=== PATIENT | male | born 1945 | race Caucasian/White ===

== ENCOUNTER → 2016-09-15 | Outpatient (CLI) | payer BC ==
[~2016-09-15] MED LIST: ASPI81TA28 PO; ATOR-26 PO; CLOP1TAB5 PO; LEVO50TA PO; LSN5 PO; METF-384 PO; MULT-513 PO; NTRGSL4 SL; REPA1TAB8 PO; TPRSR25 PO
[2016-09-15 09:41] LABS: BASO % 0.3 %; BASO ABS # 0.02 K/uL (0-0.2); COMPLETE YES; EOS % 2.5 %; HEMATOCRIT 45.5 % (42-52); IG% 0.3 %; LYMPH % 21.2 %; MEAN CELL VOLUME 92.7 fL (80-100); MEAN CORPUSCULAR HGB CONC 34.5 g/dl (32-36); MEAN PLATELET VOLUME 11.9 fL (7.4-10.4); MONO % 4.4 %; NEUT % 71.3 %; PLATELET COUNT 175 K/uL (130-400); RED BLOOD COUNT 4.91 M/uL (4.7-6.1); WHITE BLOOD COUNT 7.09 K/uL (4.8-10.8)
[2016-09-15 09:44] LABS: URINE APPEARANCE CLEAR (CLEAR); URINE BILIRUBIN NEG (NEG); URINE COLOR YELLOW; URINE EPITHELIAL CELL AUTO 0-5 /lpf (0-5); URINE NITRITE NEG (NEG); URINE SPECIFIC GRAVITY 1.006 (1.000-1.030); UROBILINOGEN NEG (NEG)
[2016-09-15 09:46] LABS: MANUAL MICROSCOPIC REQUIRED? NO; REVIEW REQ? NO
[2016-09-15 09:59] LABS: ESTIMATED AVERAGE GLUCOSE 140 mg/dl; HA1C FLAG Normal (Normal)
[2016-09-15 10:07] LABS: URINE TOTAL PROTEIN < 5.0 mg/dl (0-11.9)
[2016-09-15 10:22] LABS: RATIO 38.5 mcg/mg (0-30.0)
[2016-09-15 10:27] LABS: ALT/SGPT 24 U/L (12-78); BLOOD UREA NITROGEN 14 mg/dl (7-18); BUN/CREATININE RATIO 14.2 (10-20); CALCIUM 8.1 mg/dl (8.5-10.1); CARBON DIOXIDE 32 mmol/L (21-32); CHLORIDE 102 mmol/L (98-107); CREATININE 0.99 mg/dl (0.60-1.40); GLUCOSE 80 mg/dl (70-99); POTASSIUM 3.7 mmol/L (3.5-5.1); SODIUM 139 mmol/L (136-145)
[2016-09-15 10:37] LABS: ALB/GLOB RATIO 1.5 (0.9-2); ALKALINE PHOSPHATASE 70 U/L (45-117); AST/SGOT 11 U/L (15-37); CHOLESTEROL 93 mg/dl (0-200); CHOLESTEROL/HDL RATIO 2.2; HDL CHOLESTEROL 42 mg/dl; LDL CHOLESTEROL CALCULATED 33 mg/dl; PHOSPHORUS 2.4 mg/dl (2.5-4.9); TRIGLYCERIDES 92 mg/dl (0-150); VERY LOW DENSITY LIPOPROT CALC 18 mg/dl
== END | disposition home or self-care (01) ==
LOC: C.LAB1850 08:09
PROVIDERS: ATTEND Internal Medicine Nephrology
DX: E11.3299 Type 2 diabetes mellitus with mild nonproliferative diabetic retinopathy without macular edema, unspecified eye (principal); E03.9 Hypothyroidism, unspecified; E78.5 Hyperlipidemia, unspecified; N25.81 Secondary hyperparathyroidism of renal origin; N18.3 Chronic kidney disease, stage 3 (moderate); I12.9 Hypertensive chronic kidney disease with stage 1 through stage 4 chronic kidney disease, or unspecified chronic kidney disease

== ENCOUNTER → 2016-12-12 | Outpatient (CLI) | payer BC ==
--- NOTE | 2016-12-12 11:57 | DIAGNOSTIC IMAGING REPORT ---
LEFT SHOULDER MIN 2 VIEWS ROUTINE HISTORY: 71 years-old Male chronic left shoulder pain COMPARISON: Chest radiograph 08/07/2014 TECHNIQUE: 3 views of the left shoulder FINDINGS: Moderate acromioclavicular and glenohumeral osteoarthritis is noted. No acute fracture or dislocation. Imaged left lung hunt are clear. Negative for opaque foreign body. IMPRESSION: 1. No acute fracture or dislocation. 2. Moderate acromioclavicular and glenohumeral osteoarthritis. The above report was generated using voice recognition software. It may contain grammatical, syntax or spelling errors. Electronically signed by: Tiburcio Jimenez M.D. 12/12/2016 11:56 AM Dictated Date/Time: 12/12/2016 11:55 AM
== END | disposition home or self-care (01) ==
LOC: C.RAD1850 11:33
PROVIDERS: ATTEND Internal Medicine Cardiovascular Disease
DX: M25.512 Pain in left shoulder (principal)

== ENCOUNTER → 2017-03-30 | Outpatient (CLI) | payer BC ==
[2017-03-30 12:16] LABS: ESTIMATED AVERAGE GLUCOSE 134 mg/dl; HA1C FLAG Normal (Normal)
[2017-03-30 12:41] LABS: BLOOD UREA NITROGEN 18 mg/dl (7-18); BUN/CREATININE RATIO 16.6 (10-20); CALCIUM 9.3 mg/dl (8.5-10.1); CARBON DIOXIDE 31 mmol/L (21-32); CHLORIDE 101 mmol/L (98-107); CREATININE 1.07 mg/dl (0.60-1.40); GLUCOSE 162 mg/dl (70-99); POTASSIUM 4.5 mmol/L (3.5-5.1); SODIUM 137 mmol/L (136-145)
[2017-03-30 12:42] LABS: PHOSPHORUS 3.1 mg/dl (2.5-4.9)
== END | disposition home or self-care (01) ==
LOC: C.LAB1850 11:20
PROVIDERS: ATTEND Internal Medicine Nephrology
DX: I12.9 Hypertensive chronic kidney disease with stage 1 through stage 4 chronic kidney disease, or unspecified chronic kidney disease (principal); N18.3 Chronic kidney disease, stage 3 (moderate); N25.81 Secondary hyperparathyroidism of renal origin; Z95.828 Presence of other vascular implants and grafts; E11.22 Type 2 diabetes mellitus with diabetic chronic kidney disease; E78.5 Hyperlipidemia, unspecified; I25.10 Atherosclerotic heart disease of native coronary artery without angina pectoris

== ENCOUNTER → 2017-08-01 | Outpatient (CLI) | payer BC ==
[2017-08-01 12:10] LABS: HEMATOCRIT 44.9 % (42-52); HEMOGLOBIN 15.8 g/dL (14.0-18.0); MEAN CELL VOLUME 92.4 fL (80-100); MEAN CORPUSCULAR HEMOGLOBIN 32.5 pg (25-34); MEAN CORPUSCULAR HGB CONC 35.2 g/dl (32-36); MEAN PLATELET VOLUME 11.7 fL (7.4-10.4); PLATELET COUNT 182 K/uL (130-400); RED CELL DISTRIBUTION WIDTH CV 12.4 % (11.5-14.5); RED CELL DISTRIBUTION WIDTH SD 41.9 fL (36.4-46.3); WHITE BLOOD COUNT 6.04 K/uL (4.8-10.8)
[2017-08-01 12:43] LABS: ALBUMIN 4.1 gm/dl (3.4-5.0); BLOOD UREA NITROGEN 15 mg/dl (7-18); CALCIUM 9.5 mg/dl (8.5-10.1); CARBON DIOXIDE 30 mmol/L (21-32); CREATININE 1.15 mg/dl (0.60-1.40); GLUCOSE 145 mg/dl (70-99); PHOSPHORUS 2.5 mg/dl (2.5-4.9); POTASSIUM 4.4 mmol/L (3.5-5.1); SODIUM 136 mmol/L (136-145)
== END | disposition home or self-care (01) ==
LOC: C.LAB1850 11:04
PROVIDERS: ATTEND Internal Medicine Nephrology
DX: I12.9 Hypertensive chronic kidney disease with stage 1 through stage 4 chronic kidney disease, or unspecified chronic kidney disease (principal); N18.3 Chronic kidney disease, stage 3 (moderate); N25.81 Secondary hyperparathyroidism of renal origin; E87.1 Hypo-osmolality and hyponatremia

== ENCOUNTER 2020-09-09 09:34 | Observation (INO) ==
[2020-09-09] MEDS ORDERED: SODIUM CHLORIDE 0.9% 1000ML 500 ML IV ONE (10:13)
--- NOTE | 2020-09-09 10:18 | Emergency Department Note ---
Impression & Plan Hypertensive urgency, HTN (hypertension), Vertigo ED Provider Note NAME: TANIKA FLORES AGE: 75 SEX: M : 1945 ARRIVES VIA: Walk-In INFORMANT: Patient, ED PROVIDER(S): Efren Cifuentes DO CHIEF COMPLAINT: Dizziness HPI: Patient is a 35-year-old male with a past medical history of diabetes, ischemic cardiomyopathy, hypothyroidism, dyslipidemia, CKD and CAD along with hypertension that presents to the ER for dizziness. Symptoms started yesterday while they were driving to [place] to see a friend. Symptoms were coming and going yesterday. Today they have been persistent. He has been unable to walk. He feels like the room is moving. He denies any headache. He feels like his left ear is congested. Denies any weakness or numbness in his arms or legs. No chest pain or shortness of breath. No other exacerbating or remitting factors. He did take all of his blood pressure medications this morning around 830. He vomited while here in the waiting room. ROS: See above HPI for pertinent positives & negatives. A total of 10 systems reviewed and were otherwise negative. PAST MEDICAL HISTORY:See Below PAST SURGICAL HISTORY:See Below FAMILY HISTORY:See Below SOCIAL HISTORY:See Below HOME MEDICATIONS:See Below ALLERGIES:See Below VITALS:See Below PHYSICAL EXAMINATION: GENERAL: Sitting up in bed, alert, well appearing, well nourished, no distress, non-toxic EYE EXAM: normal conjunctiva. PERRL and EOM's intact. OROPHARYNX: no exudate, no erythema, lips, buccal mucosa, and tongue normal and mucous membranes are moist NECK: supple, no nuchal rigidity, no adenopathy, non-tender LUNGS: Clear to auscultation. Normal chest wall mechanics HEART: no murmurs, S1 normal and S2 normal ABDOMEN: abdomen soft, non-tender, normo-active bowel sounds, no masses, no rebound or guarding. BACK: Back is symmetrical on inspection and there is no deformity, no midline tenderness, no CVA tenderness. SKIN: no rashes and no bruising UPPER EXTREMITIES: upper extremities are grossly normal. LOWER EXTREMITIES: No pitting edema. NEURO EXAM: Normal sensorium, cranial nerves II-XII intact, normal speech, no weakness of arms, no weakness of legs. No drift. Finger to nose intact. Gross sensation intact. Unable to walk from wheelchair to stretcher MEDICAL DECISION MAKING: Patient is a 75-year-old male who presents the ER for dizziness. Significantly hypertensive with systolic pressures in the 210s. IV was established blood work was obtained. Labs show no significant leukocytosis or anemia. INR was unremarkable. BMP with LFTs bilirubin was unremarkable. Magnesium slightly low at 1.6. Troponin was negative. Covid was negative. CTs as well as CT angio of the head and neck showed no focal occlusion. Patient was unable to stand up as he was still dizzy. This impaction was left ear was removed by myself. Discussed with hospitalist admitted for further work-up after fluids Antivert and IV hydralazine. Blood pressure did trend down. Triage Nursing notes reviewed. Limited review of prior medical records performed Vital Signs: reviewed and remarkable for HTN Differential diagnosis: Differential Diagnosis includes but is not limited to ischemic Stroke, hemorrhagic stroke, bells palsy, mass, neoplasm, migraine headache, seizure, subarachnoid hemorrhage, TIA, and transient global amnesia. ER treatment provided: See below Diagnostics interpreted by me: ECG: Sinus rhythm rate of 72 Left axis Poor baseline QTC 428 Cardiac Monitoring: An order was placed for continuous cardiac monitoring. The monitor shows a rate of 68 with sinus rhythm. Laboratory studies: As stated above and show below. Imaging studies: CT and CT angios as discussed above Consultation(s): Discussed with Dr. Henley for further evaluation Procedures: Left ear cerumen impaction: Left ear with cerumen impaction. This was removed by myself with a curette. There is a small amount of bleeding as it caused a slight amount of trauma to the canal. TM is still intact. Patient tolerated procedure well. Critical Care: None Past Med/Surg History Surgical History H/O colonoscopy complete Family History Father Diabetes Coronary arteriosclerosis Social History Smoking Status: Never smoker Hx Alcohol Use: No Preferred Language: Belarusian marital status: Current Living Situation: Spouse current occupational status: retired Feels Safe at Home: Yes Allergies Allergies Allergy/AdvReac Type Severity Reaction Status Date / Time No Known Allergies Allergy Unknown Verified 09/09/20 11:01 Home Meds Home Medications Medication Instructions Recorded Confirmed aspirin 81 mg tablet,delayed 81 mg PO DAILY 11/15/18 09/09/20 release multivitamin 1 tab PO DAILY 09/09/20 09/09/20 Previous Rx's Medication Instructions Recorded nitroglycerin 0.4 mg sublingual 0.4 mg SL Q5M PRN #25 tab 11/15/18 tablet lancets 33 gauge #100 ea 03/17/19 atorvastatin 80 mg tablet 80 mg PO DAILY #90 tab 03/01/20 blood sugar diagnostic #100 ea 03/01/20 blood-glucose meter #1 ea 03/01/20 clopidogrel 75 mg tablet 75 mg PO DAILY #90 tab 03/01/20 furosemide 20 mg tablet 20 mg PO DAILY #90 tab 03/01/20 levothyroxine 75 mcg capsule 75 mcg PO DAILY #90 cap 03/01/20 lisinopril 20 mg tablet 20 mg PO BID #180 tab 03/01/20 metformin 1,000 mg tablet 1,000 mg PO BID #180 tab 03/01/20 metoprolol succinate 25 mg 25 mg PO BID #180 tab 03/01/20 tablet,extended release 24 hr repaglinide 1 mg tablet See Rx Instructions PO .COMPLEX 03/01/20 PRN #1440 tab Results & Data (ED) Vital Signs Vital Signs - 24 hr 09/09/20 09:40 09/09/20 12:05 09/09/20 12:19 Temperature 36.0 C L Temperature Source Temporal Artery Scan Pulse Rate 61 68 63 Pulse Rate from SpO2 Sensor Respiratory Rate 18 20 23 Blood Pressure 202/93 H 208/95 H 201/91 H Blood Pressure Mean 129 132 127 Pulse Oximetry 98 97 96 Oxygen Delivery Method Room Air Sepsis Recent Fever Within 48 Hours No Sepsis New/Unexplained Change in Mental Status N/A Sepsis Action Taken by Nursing No Action Required 09/09/20 12:31 09/09/20 12:36 09/09/20 13:01 Temperature Temperature Source Pulse Rate 65 70 65 Pulse Rate from SpO2 Sensor Respiratory Rate 21 21 18 Blood Pressure 172/82 H 186/95 H 167/87 H Blood Pressure Mean 112 125 113 Pulse Oximetry 98 96 96 Oxygen Delivery Method Sepsis Recent Fever Within 48 Hours Sepsis New/Unexplained Change in Mental Status Sepsis Action Taken by Nursing 09/09/20 13:13 09/09/20 13:31 09/09/20 14:01 Temperature Temperature Source Pulse Rate 65 62 Pulse Rate from SpO2 Sensor 64 63 62 Respiratory Rate 18 Blood Pressure 175/82 H 185/83 H 163/80 H Blood Pressure Mean 113 117 107 Pulse Oximetry 97 97 96 Oxygen Delivery Method Sepsis Recent Fever Within 48 Hours Sepsis New/Unexplained Change in Mental Status Sepsis Action Taken by Nursing Laboratory Data Result diagrams: 09/09/20 10:25 09/09/20 10:25 Lab Results 09/09/20 09/09/20 09/09/20 Range/Units 10:25 10:25 10:25 WBC 5.51 (4.8-10.8) K/uL RBC 4.49 L (4.7-6.1) M/uL Hgb 14.8 (14.0-18.0) g/dL Hct 41.8 L (42-52) % MCV 93.1 (80-100) fL MCH 33.0 (25-34) pg MCHC 35.4 (32-36) g/dL RDW Std Deviation 41.8 (36.4-46.3) fL RDW Coeff of Jamshid 12.4 (11.5-14.5) % Plt Count 182 (130-400) K/uL MPV 11.3 H (7.4-10.4) fL Immature Gran % (Auto) 0.2 % Neut % (Auto) 79.4 % Lymph % (Auto) 14.9 % [place] % (Auto) 4.4 % Eos % (Auto) 0.9 % Baso % (Auto) 0.2 % Neut # (Auto) 4.38 (1.4-6.5) K/uL Lymph # (Auto) 0.82 L (1.2-3.4) K/uL [place] # (Auto) 0.24 (0.11-0.59) K/uL Eos # (Auto) 0.05 (0-0.5) K/uL Baso # (Auto) 0.01 (0-0.2) K/uL Immature Gran # (Auto) 0.01 (0.00-0.02) K/uL PT 10.9 (9.0-12.0) Seconds INR 1.1 (0.9-1.1) APTT 22.5 (21.0-31.0) Seconds PTT Ratio 0.9 Sodium 137 (136-145) mmol/L Potassium 4.1 (3.5-5.1) mmol/L Chloride 103 (98-107) mmol/L Carbon Dioxide 28 (21-32) mmol/L Anion Gap 5.0 (3-11) BUN 12 (7-18) mg/dl Creatinine 0.95 (0.6-1.4) mg/dl Est Cr Clr Drug Dosing Not Reportable Est GFR ( Amer) 90.4 ml/min Est GFR (Non-Af Amer) 78.0 ml/min BUN/Creatinine Ratio 13.1 (10-20) Glucose 183 H (70-99) mg/dl Calcium 8.9 (8.5-10.1) mg/dl Magnesium 1.6 L (1.8-2.4) mg/dl Total Bilirubin 0.8 (0.2-1) mg/dl AST 16 (15-37) U/L ALT 19 (12-78) U/L Alkaline Phosphatase 60 (45-117) U/L Troponin I < 0.015 (0-0.045) ng/ml Total Protein 6.6 (6.4-8.2) gm/dl Albumin 3.9 (3.4-5.0) gm/dl Globulin 2.7 (2.5-4.0) gm/dl Albumin/Globulin Ratio 1.4 (0.9-2) COVID-19 Eval Order SARS-CoV-2 (PCR) (Negative) 09/09/20 09/09/20 Range/Units 11:52 11:52 WBC (4.8-10.8) K/uL RBC (4.7-6.1) M/uL Hgb (14.0-18.0) g/dL Hct (42-52) % MCV (80-100) fL MCH (25-34) pg MCHC (32-36) g/dL RDW Std Deviation (36.4-46.3) fL RDW Coeff of Jamshid (11.5-14.5) % Plt Count (130-400) K/uL MPV (7.4-10.4) fL Immature Gran % (Auto) % Neut % (Auto) % Lymph % (Auto) % [place] % (Auto) % Eos % (Auto) % Baso % (Auto) % Neut # (Auto) (1.4-6.5) K/uL Lymph # (Auto) (1.2-3.4) K/uL [place] # (Auto) (0.11-0.59) K/uL Eos # (Auto) (0-0.5) K/uL Baso # (Auto) (0-0.2) K/uL Immature Gran # (Auto) (0.00-0.02) K/uL PT (9.0-12.0) Seconds INR (0.9-1.1) APTT (21.0-31.0) Seconds PTT Ratio Sodium (136-145) mmol/L Potassium (3.5-5.1) mmol/L Chloride (98-107) mmol/L Carbon Dioxide (21-32) mmol/L Anion Gap (3-11) BUN (7-18) mg/dl Creatinine (0.6-1.4) mg/dl Est Cr Clr Drug Dosing Est GFR ( Amer) ml/min Est GFR (Non-Af Amer) ml/min BUN/Creatinine Ratio (10-20) Glucose (70-99) mg/dl Calcium (8.5-10.1) mg/dl Magnesium (1.8-2.4) mg/dl Total Bilirubin (0.2-1) mg/dl AST (15-37) U/L ALT (12-78) U/L Alkaline Phosphatase (45-117) U/L Troponin I (0-0.045) ng/ml Total Protein (6.4-8.2) gm/dl Albumin (3.4-5.0) gm/dl Globulin (2.5-4.0) gm/dl Albumin/Globulin Ratio (0.9-2) COVID-19 Eval Order Covid19 at [facility] SARS-CoV-2 (PCR) NEGATIVE (Negative) Administered Medications Discontinued Medications Hydralazine HCl (Hydralazine Hcl 20 Mg/Ml Vial) 10 mg IV NOW STA Stop: 09/09/20 12:08 Last Admin: 09/09/20 12:21 Dose: 10 mg Documented by: [id number] Sodium Chloride (Nss 1000ml) 500 mls @ 999 mls/hr IV .Q31M ONE Stop: 09/09/20 10:43 Last Infusion: 09/09/20 11:41 Dose: 0 mls/hr Documented by: [id number] Admin: 09/09/20 10:39 Dose: 999 mls/hr Documented by: [id number] Ioversol (Optiray 320 100ml) 91 ml IV ONCE ONE Stop: 09/09/20 11:21 Last Admin: 09/09/20 11:21 Dose: 91 ml Documented by: [id number] Meclizine HCl (Meclizine Hcl 25 Mg Tab) 25 mg PO NOW STA Stop: 09/09/20 11:27 Last Admin: 09/09/20 11:51 Dose: 25 mg Documented by: [id number] Oxymetazoline HCl (Oxymetazoline 0.05% 30 Ml Btl) 3 sprays NA NOW ONE Stop: 09/09/20 13:28 Last Admin: 09/09/20 14:10 Dose: 3 sprays Documented by: [id number] Imaging Data Radiologist's Impression: Chest X-Ray 09/09/20 10:14 XR chest 1V portable HISTORY: Stroke Like Symptoms COMPARISON: Chest 12/06/2013. FINDINGS: The lungs are clear. Cardiac silhouette is normal in size. No pleural effusions. No pneumothorax. IMPRESSION: No acute process. ACT 112: Negative or not required by law. Electronically signed by: Arnaldo Perez M.D. 09/09/2020 10:[address] 09/09/20 10:14 CT head/brain wo con CLINICAL HISTORY: Stroke Like Symptoms COMPARISON STUDY: No previous studies for comparison. TECHNIQUE: Axial CT of the brain is performed from the vertex to the skull base. IV contrast was not administered for this examination. A dose lowering technique was utilized adhering to the principles of ALARA. CT DOSE: 1162.01 mGy.cm FINDINGS: No intra or extra-axial mass lesions are visualized. There is no CT evidence of acute cortical infarction. There is no evidence of midline shift. There is no a cute hemorrhage. No calvarial fractures are visualized. There are patchy white matter hypodensities likely on a small vessel basis. There is no evidence of pathologic ventricular dilatation. There is no evidence of acute sinusitis There are bilateral optic nerve drusens IMPRESSION: No acute intracranial findings ACT 112: Negative or not required by law. Electronically signed by: Dylan Musa M.D. 09/09/2020 11:30 AM Head CTA 09/09/20 10:14 CT ANGIOGRAM OF THE BRAIN; CT ANGIOGRAM OF THE NECK CLINICAL HISTORY: Strokelike symptoms. COMPARISON STUDY: Unenhanced CT of the brain performed concurrently on 09/09/2020. TECHNIQUE: Following the IV administration of 91 of Optiray 320, CT angiogram of the head and neck was performed from the aortic arch to the vertex. Images are reviewed in the axial, sagittal, and coronal planes. 3-D MIPS images are created and assessed. IV contrast was administered without complication. All measurements were calculated based on NASCET criteria. A dose lowering technique was utilized adhering to the principles of ALARA. FINDINGS: Brain parenchyma: There is age-related involutional change noting minimal subcortical and periventricular microangiopathic disease. There is no hemo rrhage, mass effect, or evidence of acute territorial ischemia by CT criteria. There is no evidence of enhancing mass lesion on the angiogram phase images. The ventricles, sulci, and cisterns are prominent secondary to involutional change. Smith-white matter differentiation is preserved. No extra-axial fluid collection is seen. Chronic lacunar infarcts are noted in the thalami. Thoracic aorta: There is atherosclerotic calcification of the thoracic aorta. Visualized portions of the thoracic aorta are normal in caliber. The aortic arch demonstrates standard 3-vessel anatomy. Right carotid arterial system: The right common carotid artery is widely patent, as are the right internal and external carotid arteries. Advanced calcified plaque is seen in the carotid bulb. Left carotid arterial system: The left common carotid artery is widely patent, as are the left internal and externally carotid arteries. Advanced calcified plaque is seen in the carotid bulb. Vertebral arteries: The vertebral arteries are diminutive but patent bilaterally. Subclavian arteries: Widely patent bilaterally. Intracranial vasculature: There is atherosclerotic calcification of the cavernous carotid arteries. There is a large collateral vessels between the ri ght internal carotid artery and the basilar artery, best seen on axial image #59. This largely supplied the posterior circulation. The internal carotid arteries are patent at the skull base, as are the anterior and middle cerebral arteries bilaterally. The vertebrobasilar system is diminutive, with only trace flow seen within the intracranial vertebral arteries. The basilar artery is patent. There is no aneurysm, high-grade stenosis, or focal vessel cut off seen throughout the intracranial circulation. Jugular veins: Patent bilaterally. Dural sinuses: Patent. Lung apices: Partially visualized upper lobe lung parenchyma appears clear. Soft tissues: There are small bilateral peritonsillar cystic foci versus fluid collections. These measure up to 1.1 cm on the right as seen on image #[id number] and up to 1.0 cm on the left as seen on image #281. The pharyngeal soft tissues are otherwise normal as imaged. The oropharyngeal airway appears widely patent. The salivary and thyroid glands are normal in appearance. No cervical lymphadenopathy is seen. Skeletal structures: The skeletal structures are osteopenic. The calvarium appears intact. The cervical spine is maintained noting multilevel spondylosis. No lytic or blastic lesion is seen. Orbits: The bony orbits are intact. Orbital contents are normal as visualized noting bilateral ocular lens implants. Sinuses and mastoids: The paranasal sinuses are clear. The mastoid air cells are well pneumatized. IMPRESSION: 1. There is no evidence of hemorrhage, mass effect, or acute territorial ischemi a by CT criteria noting angiographic phase technique. 2. There is a large collateral vessel between the right internal carotid artery and the basilar artery which supplies the posterior circulation. 3. The [place] vertebral arteries are diminutive throughout, with only trace flow at the skull base. The proximal basilar artery is also diminutive, and these findings are almost certainly chronic/developmental. 4. Otherwise unremarkable CT angiogram of the brain. 5. The carotid arteries are patent bilaterally noting calcified plaque in the carotid bulbs. 6. There are cyst versus fluid collections identified within the peritonsillar soft tissues bilaterally. Small abscesses are not excluded and clinical correlation will be essential. ACT 112: Negative or not required by law. Electronically signed by: Onofre Ayon M.D. 09/09/2020 11:47 AM Neck CTA 09/09/20 10:14 CT ANGIOGRAM OF THE BRAIN; CT ANGIOGRAM OF THE NECK CLINICAL HISTORY: Strokelike symptoms. COMPARISON STUDY: Unenhanced CT of the brain performed concurrently on 09/09/2020. TECHNIQUE: Following the IV administration of 91 of Optiray 320, CT angiogram of the head and neck was performed from the aortic arch to the vertex. Images are reviewed in the axial, sagittal, and coronal planes. 3-D MIPS images are created and assessed. IV contrast was administered without complication. All measurements were calculated based on NASCET criteria. A dose lowering technique was utilized adhering to the principles of ALARA. FINDINGS: Brain parenchyma: There is age-related involutional change noting minimal subcortical and periventricular microangiopathic disease. There is no hemorrhage, mass effect, or evidence of acute territorial ischemia by CT criteria. There is no evidence of enhancing mass lesion on the angiogram phase images. The ventricles, sulci, and cisterns are prominent secondary to involutional change. Smith-white matter differentiation is preserved. No extra- axial fluid collection is seen. Chronic lacunar infarcts are noted in the thalami. Thoracic aorta: There is atherosclerotic calcification of the thoracic aorta. Visualized portions of the thoracic aorta are normal in caliber. The aortic arch demonstrates standard 3-vessel anatomy. Right carotid arterial system: The right common carotid artery is widely patent, as are the right internal and external carotid arteries. Advanced calcified plaque is seen in the carotid bulb. Left carotid arterial system: The left common carotid artery is widely patent, as are the left internal and externally carotid arteries. Advanced calcified plaque is seen in the carotid bulb. Vertebral arteries: The vertebral arteries are diminutive but patent bilaterally. Subclavian arteries: Widely patent bilaterally. Intracranial vasculature: There is atherosclerotic calcification of the cavernous carotid arteries. There is a large collateral vessels between the right internal carotid artery and the basilar artery, best seen on axial image #59. This largely supplied the posterior circulation. The internal carotid arteries are patent at the skull base, as are the anterior and middle cerebral arteries bilaterally. The vertebrobasilar system is diminutive, with only trace flow seen within the intracranial vertebral arteries. The basilar artery is patent. There is no aneurysm, high-grade stenosis, or focal vessel cut off seen throughout the intracranial circulation. Jugular veins: Patent bilaterally. Dural sinuses: Patent. Lung apices: Partially visualized upper lobe lung parenchyma appears clear. Soft tissues: There are small bilateral peritonsillar cystic foci versus fluid collections. These measure up to 1.1 cm on the right as seen on image #2094 and up to 1.0 cm on the left as seen on image #281. The pharyngeal soft tissues are otherwise normal as imaged. The oropharyngeal airway appears widely patent. The salivary and thyroid glands are normal in appearance. No cervical lymphadenopathy is seen. Skeletal structures: The skeletal structures are osteopenic. The calvarium appears intact. The cervical spine is maintained noting multilevel spondylosis. No lytic or blastic lesion is seen. Orbits: The bony orbits are intact. Orbital contents are normal as visualized noting bilateral ocular lens implants. Sinuses and mastoids: The paranasal sinuses are clear. The mastoid air cells are well pneumatized. IMPRESSION: 1. There is no evidence of hemorrhage, mass effect, or acute territorial ischemia by CT criteria noting angiographic phase technique. 2. There is a large collateral vessel between the right internal carotid artery and the basilar artery which supplies the posterior circulation. 3. The [place] vertebral arteries are diminutive throughout, with only trace flow at the skull base. The proximal basilar artery is also diminutive, and these f indings are almost certainly chronic/developmental. 4. Otherwise unremarkable CT angiogram of the brain. 5. The carotid arteries are patent bilaterally noting calcified plaque in the carotid bulbs. 6. There are cyst versus fluid collections identified within the peritonsillar soft tissues bilaterally. Small abscesses are not excluded and clinical correlation will be essential. ACT 112: Negative or not required by law. Electronically signed by: Onofre Ayon M.D. 09/09/2020 11:47 AM Discharge Plan Visit Data Chief Complaint: Ear Pain/Problem Stated Complaint: EAR CLOGGED, DIZZY,OFF BALANCE ED Provider: Efren Cifuentes Discharge Problem: Hypertensive urgency, HTN (hypertension), Vertigo Forms Stand Alone Forms: [facility] Prescriptions Prescriptions: No Action aspirin [Adult Low Dose Aspirin] 81 mg tablet,delayed release (DR/EC) 81 mg PO DAILY RF: 0 nitroglycerin 0.4 mg tablet, sublingual 0.4 mg SL Q5M PRN (Reason: chest pain) Qty: 25 RF: 5 atorvastatin 80 mg tablet 80 mg PO DAILY Qty: 90 RF: 3 (DME) blood sugar diagnostic Strip See Rx Instructions .ROUTE .MEDSUPPLY Qty: 100 RF: 11 clopidogrel 75 mg tablet 75 mg PO DAILY Qty: 90 RF: 3 furosemide 20 mg tablet 20 mg PO DAILY Qty: 90 RF: 3 levothyroxine 75 mcg capsule 75 mcg PO DAILY Qty: 90 RF: 3 lisinopril 20 mg tablet 20 mg PO BID Qty: 180 RF: 3 metformin 1,000 mg tablet 1,000 mg PO BID Qty: 180 RF: 3 metoprolol succinate 25 mg tablet extended release 24 hr 25 mg PO BID Qty: 180 RF: 3 repaglinide 1 mg tablet See Rx Instructions PO .COMPLEX PRN (Reason: TYPE 2 DIABETES MELLITUS) Qty: 1440 RF: 3 (DME) blood-glucose meter Misc See Rx Instructions .ROUTE .MEDSUPPLY Qty: 1 RF: 0 (DME) lancets [OneTouch Delica Lancets] 33 gauge misc See Dose Instructions .ROUTE .MEDSUPPLY Qty: 100 RF: 0 multivitamin Tablet 1 tab PO DAILY RF: 0 Discharge Problem: HTN (hypertension) Qualifiers: Hypertension type: unspecified Qualified Code(s): I10 - Essential (primary) hypertension
--- NOTE | 2020-09-09 10:35 | XRay Report ---
XR chest 1V portable HISTORY: Stroke Like Symptoms COMPARISON: Chest 12/06/2013. FINDINGS: The lungs are clear. Cardiac silhouette is normal in size. No pleural effusions. No pneumot horax. IMPRESSION: No acute process. ACT 112: Negative or not required by law. Electronically signed by: Arnaldo Perez M.D. 09/09/2020 10:34 AM
[2020-09-09 10:38] LABS: Basophils # (auto) 0.01 K/uL (0-0.2); Basophils % (auto) 0.2 %; Eosinophils # (auto) 0.05 K/uL (0-0.5); Eosinophils % (auto) 0.9 %; Hematocrit (blood only) 41.8 % (42-52); Hemoglobin 14.8 g/dL (14.0-18.0); Immature Granulocytes # (auto) 0.01 K/uL (0.00-0.02); Immature Granulocytes % (auto) 0.2 %; Lymphocytes # (auto) 0.82 K/uL (1.2-3.4); Lymphocytes % (auto) 14.9 %; Mean Corpuscular Hgb Conc 35.4 g/dL (32-36); Mean Corpuscular Volume 93.1 fL (80-100); Mean Platelet Volume 11.3 fL (7.4-10.4); Monocytes # (auto) 0.24 K/uL (0.11-0.59); Monocytes % (auto) 4.4 %; Neutrophils # (auto) 4.38 K/uL (1.4-6.5); Neutrophils % (auto) 79.4 %; Platelet Count 182 K/uL (130-400); RDW Coefficient of Variation 12.4 % (11.5-14.5); RDW Standard Deviation 41.8 fL (36.4-46.3); Red Blood Count 4.49 M/uL (4.7-6.1); White Blood Count 5.51 K/uL (4.8-10.8)
[2020-09-09 10:48] LABS: INR 1.1 (0.9-1.1); Partial Thromboplastin Ratio 0.9; Partial Thromboplastin Time 22.5 Seconds (21.0-31.0); Prothrombin Time 10.9 Seconds (9.0-12.0)
[2020-09-09 10:55] LABS: Alanine Aminotransferase 19 U/L (12-78); Albumin Level 3.9 gm/dl (3.4-5.0); Aspartate Aminotransferase 16 U/L (15-37); BUN Creatinine Ratio 13.1 (10-20); Blood Urea Nitrogen 12 mg/dl (7-18); Calcium 8.9 mg/dl (8.5-10.1); Carbon Dioxide 28 mmol/L (21-32); Chloride 103 mmol/L (98-107); Est GFR (African American) 90.4 ml/min; Glucose 183 mg/dl (70-99); Magnesium 1.6 mg/dl (1.8-2.4); Potassium 4.1 mmol/L (3.5-5.1); Sodium 137 mmol/L (136-145)
[2020-09-09 10:59] LABS: Albumin Globulin Ratio 1.4 (0.9-2); Alkaline Phosphatase 60 U/L (45-117); Bilirubin,Total 0.8 mg/dl (0.2-1); Globulin 2.7 gm/dl (2.5-4.0); Total Protein 6.6 gm/dl (6.4-8.2); Troponin I < 0.015 ng/ml (0-0.045)
[2020-09-09] MEDS ORDERED: OPTIRAY 320 100ml IV ONE (11:20)
[2020-09-09] MEDS ORDERED: MECLIZINE HCL 25 MG TAB PO STA (11:26)
--- NOTE | 2020-09-09 11:31 | CT Scan Report ---
CT head/brain wo con CLINICAL HISTORY: Stroke Like Symptoms COMPARISON STUDY: No previous studies for comparison. TECHNIQUE: Axial CT of the brain is performed from the vertex to the skull base. IV contrast was not administered for this examination. A dose lowering technique was utilized adhering to the principles of ALARA. CT DOSE: 1162.01 mGy.cm FINDINGS: No intra or extra-axial mass lesions are visualized. There is no CT evidence of acute cortical infarc tion. There is no evidence of midline shift. There is no acute hemorrhage. No calvarial fractures ar e visualized. There are patchy white matter hypodensities likely on a small vessel basis. There is no evidence of pathologic ventricular dilatation. There is no evidence of acute sinusitis There are bilateral optic nerve drusens IMPRESSION: No acute intracranial findings ACT 112: Negative or not required by law. Electronically signed by: Dylan Musa M.D. 09/09/2020 11:30 AM
--- NOTE | 2020-09-09 11:49 | CT Scan Report ---
CT ANGIOGRAM OF THE BRAIN; CT ANGIOGRAM OF THE NECK CLINICAL HISTORY: Strokelike symptoms. COMPARISON STUDY: Unenhanced CT of the brain performed concurrently on 09/09/2020. TECHNIQUE: Following the IV administration of 91 of Optiray 320, CT angiogram of the head and neck wa s performed from the aortic arch to the vertex. Images are reviewed in the axial, sagittal, and coron al planes. 3-D MIPS images are created and assessed. IV contrast was administered without complicatio n. All measurements were calculated based on NASCET criteria. A dose lowering technique was utilized adhering to the principles of ALARA. FINDINGS: Brain parenchyma: There is age-related involutional change noting minimal subcortical and periventric ular microangiopathic disease. There is no hemorrhage, mass effect, or evidence of acute territorial ischemia by CT criteria. There is no evidence of enhancing mass lesion on the angiogram phase images. The ventricles, sulci, and cisterns are prominent secondary to involutional change. Smith-white matte r differentiation is preserved. No extra-axial fluid collection is seen. Chronic lacunar infarcts are noted in the thalami. Thoracic aorta: There is atherosclerotic calcification of the thoracic aorta. Visualized portions of the thoracic aorta are normal in caliber. The aortic arch demonstrates standard 3-vessel anatomy. Right carotid arterial system: The right common carotid artery is widely patent, as are the right int ernal and external carotid arteries. Advanced calcified plaque is seen in the carotid bulb. Left carotid arterial system: The left common carotid artery is widely patent, as are the left record label intern al and externally carotid arteries. Advanced calcified plaque is seen in the carotid bulb. Vertebral arteries: The vertebral arteries are diminutive but patent bilaterally. Subclavian arteries: Widely patent bilaterally. Intracranial vasculature: There is atherosclerotic calcification of the cavernous carotid arteries. T here is a large collateral vessels between the right internal carotid artery and the basilar artery, best seen on axial image #59. This largely supplied the posterior circulation. The internal carotid a rteries are patent at the skull base, as are the anterior and middle cerebral arteries bilaterally. The vertebrobasilar system is diminutive, with only trace flow seen within the intracranial vertebral arteries. The basilar artery is patent. There is no aneurysm, high-grade stenosis, or focal vessel c ut off seen throughout the intracranial circulation. Jugular veins: Patent bilaterally. Dural sinuses: Patent. Lung apices: Partially visualized upper lobe lung parenchyma appears clear. Soft tissues: There are small bilateral peritonsillar cystic foci versus fluid collections. These madi sure up to 1.1 cm on the right as seen on image #[id number] and up to 1.0 cm on the left as seen on image # 281. The pharyngeal soft tissues are otherwise normal as imaged. The oropharyngeal airway appears wid luz patent. The salivary and thyroid glands are normal in appearance. No cervical lymphadenopathy is seen. Skeletal structures: The skeletal structures are osteopenic. The calvarium appears intact. The cervic al spine is maintained noting multilevel spondylosis. No lytic or blastic lesion is seen. Orbits: The bony orbits are intact. Orbital contents are normal as visualized noting bilateral ocular lens implants. Sinuses and mastoids: The paranasal sinuses are clear. The mastoid air cells are well pneumatized. IMPRESSION: 1. There is no evidence of hemorrhage, mass effect, or acute territorial ischemia by CT criteria noti ng angiographic phase technique. 2. There is a large collateral vessel between the right internal carotid artery and the basilar arter y which supplies the posterior circulation. 3. The [place] vertebral arteries are diminutive throughout, with only trace flow at the skull base. T he proximal basilar artery is also diminutive, and these findings are almost certainly chronic/develo pmental. 4. Otherwise unremarkable CT angiogram of the brain. 5. The carotid arteries are patent bilaterally noting calcified plaque in the carotid bulbs. 6. There are cyst versus fluid collections identified within the peritonsillar soft tissues bilateral ly. Small abscesses are not excluded and clinical correlation will be essential. ACT 112: Negative or not required by law. Electronically signed by: Onofre Ayon M.D. 09/09/2020 11:47 AM
[2020-09-09] MEDS ORDERED: hydrALAZINE HCL 20 MG/ML VIAL IV STA (12:07)
[2020-09-09] MEDS ORDERED: OXYMETAZOLINE 0.05% 30 ML BTL ONE (13:27)
--- NOTE | 2020-09-09 14:59 | History & Physical Report ---
Date of Service September 09, 2020 Assessment & Plan (1) Vertigo: Mr. Davenport is a 75 year old male with a history of Hypertension, Hypercholesterolemia, Mild LVH, Diastolic Dysfunction, Mild to Moderate Mitral Regurgitation, Ischemic Cardiomyopathy (LVEF up to 50%, Jan 2014, Feb 2017, Feb 2019), CAD s/p Anteroapical MS s/p proximal LAD stents), Type 2 Diabetes Mellitus, Peripheral and Autonomic Neuropathy, and Stage 3 CKD who presents to the ER today complaining of Vertigo, Left Ear Congestion, and Vomiting. His Vertigo is so bad that he cannot walk without risking a fall. These symptoms started yesterday while they were driving to [place] to see a friend, and as they were driving up over [place] his left ear felt congested, he had decreased hearing in his left ear, and then experienced vertigo. His vertigo and ear congestion seems to be sometimes mild and other times it's more severe -- he describes 5 severe episodes of vertigo since yesterday and symptoms have been more persistent today. He has been unable to walk. He feels like the room is moving. He denies any headache or tinnitus. He denies any focal weakness, tingling, or numbness of his arms or legs. He denies any visual disturbance, blind black spots, loss of visual hunt. He denies any slurred speech. No chest pain, angina, or shortness of breath. These symptoms are likely related to eustachian tube dysfunction. Consider BPPV and Meniere's Disease in the differential. No evidence of a CVA on imaging. -- Admit to Med-Surg. -- IV Methylprednisolone 60 mg x 1 dose ordered. -- Nasacort AQ 2 sprays in each nostril daily. -- Meclizine as needed. -- PT Evaluation and treatment of vertigo. (2) HTN (hypertension): -- Initial BP in the ER was 202/93 and increased to 208/95. -- BP has subsequently decreased to 163/80. -- Patient states that his BP's at home have been ranging in the 120 to 130's mmHg. -- Continue Lisinopril 20 mg b.i.d.. -- Continue Metoprolol Succinate ER 25 mg b.i.d.. -- Continue Lasix 20 mg daily. -- Add Hydralazine 20mg IV q 4 hours as needed for SBP = or > 160 mmHg. (3) Type 2 diabetes mellitus: -- Hold Metformin. -- Monitor daily labs. (4) CAD (coronary artery disease): -- Continue Lisinopril 20 mg b.i.d.. -- Continue Metoprolol Succinate ER 25 mg b.i.d.. -- Continue Lasix 20 mg daily. -- Continue Aspirin 81 mg daily. -- Continue Plavix 75 mg daily. -- Continue Atorvastatin 80 mg daily. (5) Ischemic cardiomyopathy: -- LVEF 50%. -- Well compensated. -- Continue medications as outlined above. (6) CKD (chronic kidney disease), stage III: -- Monitor daily labs. -- Continue medications as outlined above. History of Present Illness Chief Complaint: -- Vertigo. -- Eustachian Tube Dysfunction. -- Uncontrolled Hypertension. Primary Care Provider: Flex Figueroa MD Mr. Davenport is a 75 year old male with a history of Hypertension, Hypercholesterolemia, Mild LVH, Diastolic Dysfunction, Mild to Moderate Mitral Regurgitation, Ischemic Cardiomyopathy (LVEF up to 50%, Jan 2014, Feb 2017, Feb 2019), CAD s/p Anteroapical MS s/p proximal LAD stents), Type 2 Diabetes Mellitus, Peripheral and Autonomic Neuropathy, and Stage 3 CKD who presents to the ER today complaining of Vertigo, Left Ear Congestion, and Vomiting. His Vertigo is so bad that he cannot walk without risking a fall. These symptoms started yesterday while they were driving to [place] to see a friend, and as they were driving up over [facility] his left ear felt congested, he had decreased hearing in his left ear, and then experienced vertigo. His vertigo and ear congestion seems to be sometimes mild and other times it's more severe -- he describes 5 severe episodes of vertigo since yesterday and symptoms have been more persistent today. He has been unable to walk. He feels like the room is moving. He denies any headache or tinnitus. He denies any focal weakness, tingling, or numbness of his arms or legs. He denies any visual disturbance, blind black spots, loss of visual hunt. He denies any slurred speech. No chest pain, angina, or shortness of breath. His diet and oral intake have been stable. BP's at home have been ranging in the 120 to 130's mmHg at home, although his SBP in the ER was up to 200 mmHg. In the ER, he was noted to have cerumen in the left ear canal. This was removed and his symptoms persisted. Allergies Allergy/AdvReac Type Severity Reaction Status Date / Time No Known Allergies Allergy Unknown Verified 09/09/20 11:01 Home Medications Medication Instructions Recorded Confirmed Type aspirin 81 mg tablet,delayed 81 mg PO DAILY 11/15/18 09/09/20 History release nitroglycerin 0.4 mg sublingual 0.4 mg SL Q5M PRN #25 tab 11/15/18 09/09/20 Rx tablet lancets 33 gauge #100 ea 03/17/19 09/09/20 Rx atorvastatin 80 mg tablet 80 mg PO DAILY #90 tab 03/01/20 09/09/20 Rx blood sugar diagnostic #100 ea 03/01/20 09/09/20 Rx blood-glucose meter #1 ea 03/01/20 09/09/20 Rx clopidogrel 75 mg tablet 75 mg PO DAILY #90 tab 03/01/20 09/09/20 Rx furosemide 20 mg tablet 20 mg PO DAILY #90 tab 03/01/20 09/09/20 Rx levothyroxine 75 mcg capsule 75 mcg PO DAILY #90 cap 03/01/20 09/09/20 Rx lisinopril 20 mg tablet 20 mg PO BID #180 tab 03/01/20 09/09/20 Rx metformin 1,000 mg tablet 1,000 mg PO BID #180 tab 03/01/20 09/09/20 Rx metoprolol succinate 25 mg 25 mg PO BID #180 tab 03/01/20 09/09/20 Rx tablet,extended release 24 hr repaglinide 1 mg tablet See Rx Instructions PO .COMPLEX 03/01/20 09/09/20 Rx PRN #1440 tab multivitamin 1 tab PO DAILY 09/09/20 09/09/20 History Past Med/Surg History Surgical History H/O colonoscopy complete Family History Father Diabetes Coronary arteriosclerosis Social History Smoking Status: Never smoker Hx Alcohol Use: No Preferred Language: Korean marital status: Current Living Situation: Spouse current occupational status: retired Feels Safe at Home: Yes Review of Systems Review of Systems: All systems reviewed & are unremarkable except as noted in Subjective Physical Exam Physical Exam: GENERAL: Patient in no acute distress. HEENT: Head is atraumatic, normocephalic. EOM's intact. Facies symmetric. No perioral cyanosis. Left ear canal clear, mild retraction of left tympanic membrane. No fluid lines noted. NECK: No JVD. JVP is at the level of the clavicle sitting upright. Carotid upstrokes are + 2 bilaterally. No bruits are noted. CHEST/LUNGS: Clear to auscultation throughout all lung hunt. No wheezes, rales, or crackles. CVS: S1 and S2 are regular with a grade 2/6 apical systolic murmur. No diastolic murmurs or rubs. PMI is nondisplaced. No lifts, heaves, or thrills. No abdominal aortic or renal bruits. ABDOMINAL EXAM: Bowel sounds are present. No masses, organomegaly, or tenderness. EXTREMITIES: No clubbing or cyanosis. No edema. Intact posterior tibial and radial pulses bilaterally. NEUROLOGIC EXAM: Patient is awake, alert, and oriented. Pleasant and cooperative. Answers questions appropriately. Speech is clear. Normal movement in all 4 extremities. Gait pattern was not assessed. Some thenar and interosseus muscle wasting noted in bilateral hands. Worm Sorter shows a normal sinus rhythm. Results & Data Results & Data ([facility]) Vital Signs (Past 12 Hours) Vital Signs Temp Pulse Resp BP Pulse Ox 09/09/20 14:01 62 163/80 H 96 09/09/20 13:31 65 185/83 H 97 09/09/20 13:13 18 175/82 H 97 09/09/20 13:01 65 18 167/87 H 96 09/09/20 12:36 70 21 186/95 H 96 09/09/20 12:31 65 21 172/82 H 98 09/09/20 12:19 63 23 201/91 H 96 09/09/20 12:05 68 20 208/95 H 97 09/09/20 09:40 36.0 C L 61 18 202/93 H 98 Laboratory Results Laboratory Results - last 24 hr 05/27/21 05/27/21 05/27/21 10:25 10:25 10:25 WBC 5.51 RBC 4.49 L Hgb 14.8 Hct 41.8 L MCV 93.1 MCH 33.0 MCHC 35.4 RDW Std Deviation 41.8 RDW Coeff of Jamshid 12.4 Plt Count 182 MPV 11.3 H Immature Gran % (Auto) 0.2 Neut % (Auto) 79.4 Lymph % (Auto) 14.9 [place] % (Auto) 4.4 Eos % (Auto) 0.9 Baso % (Auto) 0.2 Neut # (Auto) 4.38 Lymph # (Auto) 0.82 L [place] # (Auto) 0.24 Eos # (Auto) 0.05 Baso # (Auto) 0.01 Immature Gran # (Auto) 0.01 PT 10.9 INR 1.1 APTT 22.5 PTT Ratio 0.9 Sodium 137 Potassium 4.1 Chloride 103 Carbon Dioxide 28 Anion Gap 5.0 BUN 12 Creatinine 0.95 Est Cr Clr Drug Dosing Not Reportable Est GFR ( Amer) 90.4 Est GFR (Non-Af Amer) 78.0 BUN/Creatinine Ratio 13.1 Glucose 183 H Calcium 8.9 Magnesium 1.6 L Total Bilirubin 0.8 AST 16 ALT 19 Alkaline Phosphatase 60 Troponin I < 0.015 Total Protein 6.6 Albumin 3.9 Globulin 2.7 Albumin/Globulin Ratio 1.4 COVID-19 Eval Order SARS-CoV-2 (PCR) 09/09/20 09/09/20 11:52 11:52 WBC RBC Hgb Hct MCV MCH MCHC RDW Std Deviation RDW Coeff of Jamshid Plt Count MPV Immature Gran % (Auto) Neut % (Auto) Lymph % (Auto) [place] % (Auto) Eos % (Auto) Baso % (Auto) Neut # (Auto) Lymph # (Auto) [place] # (Auto) Eos # (Auto) Baso # (Auto) Immature Gran # (Auto) PT INR APTT PTT Ratio Sodium Potassium Chloride Carbon Dioxide Anion Gap BUN Creatinine Est Cr Clr Drug Dosing Est GFR ( Amer) Est GFR (Non-Af Amer) BUN/Creatinine Ratio Glucose Calcium Magnesium Total Bilirubin AST ALT Alkaline Phosphatase Troponin I Total Protein Albumin Globulin Albumin/Globulin Ratio COVID-19 Eval Order Covid19 at [facility] SARS-CoV-2 (PCR) NEGATIVE Diagnostic Findings CT SCAN HEAD 09/09/20: No intra or extra-axial mass lesions are visualized. There is no CT evidence of acute cortical infarction. There is no evidence of midline shift. There is no acute hemorrhage. No calvarial fractures are visualized. There are patchy white matter hypodensities likely on a small vessel basis. There is no evidence of pathologic ventricular dilatation. There is no evidence of acute sinusitis There are bilateral optic nerve drusens IMPRESSION: No acute intracranial findings CTA HEAD/NECK 09/09/20: 1. There is no evidence of hemorrhage, mass effect, or acute territorial ischemia by CT criteria noting angiographic phase technique. 2. There is a large collateral vessel between the right internal carotid artery and the basilar artery which supplies the posterior circulation. 3. The [place] vertebral arteries are diminutive throughout, with only trace flow at the skull base. The proximal basilar artery is also diminutive, and these findings are almost certainly chronic/developmental. 4. Otherwise unremarkable CT angiogram of the brain. 5. The carotid arteries are patent bilaterally noting calcified plaque in the carotid bulbs. 6. There are cyst versus fluid collections identified within the peritonsillar soft tissues bilaterally. Small abscesses are not excluded and clinical correlation will be essential. Medications Administered Medications aspirin 81 mg tablet,delayed release 81 mg PO DAILY 11/15/18 [History Confirmed 09/09/20] nitroglycerin 0.4 mg sublingual tablet 0.4 mg SL Q5M PRN #25 tab 11/15/18 [Rx Confirmed 09/09/20] lancets 33 gauge #100 ea 03/17/19 [Rx Confirmed 09/09/20] atorvastatin 80 mg tablet 80 mg PO DAILY #90 tab 03/01/20 [Rx Confirmed 09/09/20] blood sugar diagnostic #100 ea 03/01/20 [Rx Confirmed 09/09/20] blood-glucose meter #1 ea 03/01/20 [Rx Confirmed 09/09/20] clopidogrel 75 mg tablet 75 mg PO DAILY #90 tab 03/01/20 [Rx Confirmed 09/09/20] furosemide 20 mg tablet 20 mg PO DAILY #90 tab 03/01/20 [Rx Confirmed 09/09/20] levothyroxine 75 mcg capsule 75 mcg PO DAILY #90 cap 03/01/20 [Rx Confirmed 09/09/20] lisinopril 20 mg tablet 20 mg PO BID #180 tab 03/01/20 [Rx Confirmed 09/09/20] metformin 1,000 mg tablet 1,000 mg PO BID #180 tab 03/01/20 [Rx Confirmed 09/09/20] metoprolol succinate 25 mg tablet,extended release 24 hr 25 mg PO BID #180 tab 03/01/20 [Rx Confirmed 09/09/20] repaglinide 1 mg tablet See Rx Instructions PO .COMPLEX PRN #1440 tab 03/01/20 [Rx Confirmed 09/09/20] multivitamin 1 tab PO DAILY 09/09/20 [History Confirmed 09/09/20] Code Status & VTE Plan Code Status Full Code VTE Prophylaxis Plan VTE Prophylaxis will be ordered: Yes Supervising Physician Co-Signing Physician Notes Patient seen and examined. Discussed with NELLY, agree with his note above. Patient presents with episodic vertigo, ambulatory dysfunction. He is also significantly hypertensive, last documented . Plan to continue all blood pressure medications as ordered, patient is also on IV hydralazine. If hypertension persists, consider nitroglycerin drip. Patient was given IV Solu- Medrol x1 in the emergency room, he is now hyperglycemic due to his history of diabetes. Placed on a sliding scale insulin. Patient was on Metformin to be held secondary to dye studies. PT/OT evaluation in the morning hours blood pressure is better controlled. PG Care Time/CCT Total # of Minutes Spent Total Time Spent with Patient: Total time spent is greater than 50% in coor dination of care (as documented) at patient's floor/unit and/or counseling patient:50 Coding Level of Care Code 19977 OBS Care - Level 3 Diagnoses Vertigo R42 HTN (hypertension) I10 Type 2 diabetes mellitus E11.9 CAD (coronary artery disease) I25.10 Ischemic cardiomyopathy I25.5 CKD (chronic kidney disease), stage III N18.3 Time Spent (min) 65
--- NOTE | 2020-09-09 15:40 | Electrocardiogram Report ---
Test Reason : Blood Pressure : / mmHG Vent. Rate : 062 BPM Atrial Rate : 062 BPM P-R Int : 152 ms QRS Dur : 088 ms QT Int : 422 ms P-R-T Axes : 056 -20 049 degrees QTc Int : 428 ms Normal sinus rhythm Possible Left atrial enlargement Left ventricular hypertrophy Inferior infarct (cited on or before 18-DEC-2005) Abnormal ECG When compared with ECG of 08-DEC-2013 08:49, ST no longer elevated in Anterolateral leads T wave inversion no longer evident in Lateral leads Confirmed by Fracisco Singh ([id number]) on 09/09/2020 3:39:47 PM Referred By: REFERRED SELF Confirmed By:Fracisco Singh
[2020-09-09] MEDS ORDERED: NITROGLYCERIN SL 0.4 MG/TAB TAB SL PRN (18:31)
[2020-09-09] MEDS ORDERED: ALUMINUM/MAGNESIUM SUSP 30 ML UDC PO PRN (18:31)
[2020-09-09] MEDS ORDERED: ACETAMINOPHEN 325 MG TAB PO PRN (18:31)
[2020-09-09] MEDS ORDERED: methylPREDNISolone 125 MG/2 ML VIAL IV ONE (18:31)
[2020-09-09] MEDS ORDERED: POLYETHYLENE (MIRALAX) 17 GM PACK PO PRN (18:31)
[2020-09-09] MEDS ORDERED: MAGNESIUM HYDROXIDE SUSP 30 ML UDC PO PRN (18:31)
[2020-09-09] MEDS ORDERED: hydrALAZINE HCL 20 MG/ML VIAL IV PRN (18:31)
[2020-09-09] MEDS ORDERED: ZOLPIDEM TARTRATE 5 MG TAB PO PRN (18:31)
[2020-09-09] MEDS ORDERED: ONDANSETRON INJ 2 MG/ML 2 ML VIAL IV PRN (18:31)
[2020-09-09] MEDS ORDERED: methylPREDNISolone 60 MG in SYRINGE 0 ML IV ONE (19:30)
[2020-09-09] MEDS ORDERED: GLUCOSE 40% GEL 15 GM TUBE PO PRN (19:37)
[2020-09-09] MEDS ORDERED: CARBOHYDRATES FOR HYPOGLYCEMIA PO PRN (19:37)
[2020-09-09] MEDS ORDERED: GLUCOSE 10 TABS/TUBE PO PRN (19:37)
[2020-09-09] MEDS ORDERED: DEXTROSE 50% 50 ML SYRINGE IV PRN (19:37)
[2020-09-09] MEDS ORDERED: GLUCAGON FOR INJ 1 MG VIAL SQ PRN (19:37)
[2020-09-09] MEDS: TRIAMCINOLONE ACET NASAL SPRAY 10.8ML BTL NAE SCH (19:59)
[2020-09-09] MEDS ORDERED: MAGNESIUM SULFATE / D5W 1 GM/100 ML BAG IV ONE (20:15)
[2020-09-09] MEDS: ENOXAPARIN INJ 40 MG/0.4 ML SYR SQ SCH (21:24)
[2020-09-09] MEDS: INSULIN ASPART 100 UNITS/ML 3 ML PEN SC SCH (21:25)
[2020-09-09] MEDS: METOPROLOL SUCC 25MG EXT REL TAB PO SCH (21:29)
[2020-09-09] MEDS: lisinopril 20 MG TAB PO SCH (21:30)
[2020-09-10] MEDS ORDERED: INSULIN ASPART 100 UNITS/ML 3 ML PEN SC STA (04:35)
[2020-09-10] MEDS: LEVOTHYROXINE SODIUM 75 MCG TABLET PO SCH (06:03)
[2020-09-10 06:17] LABS: Hematocrit (blood only) 42.1 % (42-52); Lymphocytes # (auto) 0.56 K/uL (1.2-3.4); Lymphocytes % (auto) 9.5 %; Mean Corpuscular Hemoglobin 32.3 pg (25-34); Mean Corpuscular Hgb Conc 35.6 g/dL (32-36); Mean Corpuscular Volume 90.7 fL (80-100); Mean Platelet Volume 11.2 fL (7.4-10.4); Monocytes # (auto) 0.09 K/uL (0.11-0.59); Monocytes % (auto) 1.5 %; Neutrophils # (auto) 5.23 K/uL (1.4-6.5); Platelet Count 174 K/uL (130-400); RDW Coefficient of Variation 12.4 % (11.5-14.5); RDW Standard Deviation 41.4 fL (36.4-46.3); Red Blood Count 4.64 M/uL (4.7-6.1); White Blood Count 5.88 K/uL (4.8-10.8)
[2020-09-10 06:47] LABS: BUN Creatinine Ratio 18.3 (10-20); Calcium 9.1 mg/dl (8.5-10.1); Creatinine Clr Calc Pharmacy 49.7 ml/min; Est GFR (African American) 68.1 ml/min; Est GFR (Non-African American) 58.8 ml/min
[2020-09-10] MEDS: INSULIN ASPART 100 UNITS/ML 3 ML PEN SC SCH ×4 (09:07→20:45)
[2020-09-10] MEDS: lisinopril 20 MG TAB PO SCH ×2 (09:08→20:50)
[2020-09-10] MEDS: FUROSEMIDE 20 MG TAB PO SCH (09:09)
[2020-09-10] MEDS: MULTIVITAMIN TAB PO SCH (09:09)
[2020-09-10] MEDS: METOPROLOL SUCC 25MG EXT REL TAB PO SCH ×2 (09:09→20:50)
[2020-09-10] MEDS: CLOPIDOGREL BISULFATE 75 MG TAB PO SCH (09:09)
[2020-09-10] MEDS: ATORVASTATIN 40 MG TAB PO SCH (09:10)
[2020-09-10] MEDS: ASPIRIN 81 MG ECTAB PO SCH (09:10)
[2020-09-10] MEDS: TRIAMCINOLONE ACET NASAL SPRAY 10.8ML BTL NAE SCH (09:10)
[2020-09-10] MEDS: INSULIN GLARGINE SOLOSTAR 100 UNITS/ML 3 ML PEN SC SCH (11:45)
[2020-09-10] MEDS ORDERED: MECLIZINE HCL 25 MG TAB PO STA (13:45)
[2020-09-10] MEDS: ENOXAPARIN INJ 40 MG/0.4 ML SYR SQ SCH (20:42)
[2020-09-10] MEDS: MECLIZINE HCL 25 MG TAB PO PRN (20:49)
--- NOTE | 2020-09-10 22:07 | Hospitalist Progress Note ---
Date of Service September 10, 2020 Assessment & Plan (1) Vertigo: Mr. Davenport is a 75 year old male with a history of Hypertension, Hypercholesterolemia, Mild LVH, Diastolic Dysfunction, Mild to Moderate Mitral Regurgitation, Ischemic Cardiomyopathy (LVEF up to 50%, Jan 2014, Feb 2017, Feb 2019), CAD s/p Anteroapical [place] s/p proximal LAD stents), Type 2 Diabetes Mellitus, Peripheral and Autonomic Neuropathy, and Stage 3 CKD who presents to the ER today complaining of Vertigo, Left Ear Congestion, and Vomiting. His Vertigo is so bad that he cannot walk without risking a fall. These symptoms started yesterday while they were driving to [place] to see a friend, and as they were driving up over [employer] his left ear felt congested, he had decreased hearing in his left ear, and then experienced vertigo. His vertigo and ear congestion seems to be sometimes mild and other times it's more severe -- he describes 5 severe episodes of vertigo since yesterday and symptoms have been more persistent today. He has been unable to walk. He feels like the room is moving. He denies any headache or tinnitus. He denies any focal weakness, tingling, or numbness of his arms or legs. He denies any visual disturbance, blind black spots, loss of visual hunt. He denies any slurred speech. No chest pain, angina, or shortness of breath. These symptoms are likely related to eustachian tube dysfunction. It appears like to be Meniere's Disease. No evidence of a CVA on imaging. -- Admit to Med-Surg. --Will continue meclizine, will have patient followup with ENT as an outpatient. Due to patient remaining unsteady will hold discharge. Given that symptoms are to be peripheral, and not central, will hold off MRI. -- Nasacort AQ 2 sprays in each nostril daily. -- Meclizine as needed. -- PT Evaluation and treatment of vertigo. ENT agrees with plan. (2) HTN (hypertension): -- Initial BP in the ER was 202/93 and increased to 208/95. -- BP has subsequently decreased to 163/80. -- Patient states that his BP's at home have been ranging in the 120 to 130's mmHg. -- Continue Lisinopril 20 mg b.i.d.. -- Continue Metoprolol Succinate ER 25 mg b.i.d.. -- Continue Lasix 20 mg daily. -- Add Hydralazine 20mg IV q 4 hours as needed for SBP = or > 160 mmHg. (3) Type 2 diabetes mellitus: -- Hold Metformin. -- Monitor daily labs. (4) CAD (coronary artery disease): -- Continue Lisinopril 20 mg b.i.d.. -- Continue Metoprolol Succinate ER 25 mg b.i.d.. -- Continue Lasix 20 mg daily. -- Continue Aspirin 81 mg daily. -- Continue Plavix 75 mg daily. -- Continue Atorvastatin 80 mg daily. (5) Ischemic cardiomyopathy: -- LVEF 50%. -- Well compensated. -- Continue medications as outlined above. (6) CKD (chronic kidney disease), stage III: -- Monitor daily labs. -- Continue medications as outlined above. Admission and Anticipated Discharge Date Admission Date: September 09, 2020 Subjective 75 yo male reports that he continues to have dizziness today. He is complaining of fullness in his left ear, buzzing and decreased hearing. Review of Systems Review of Systems: All systems reviewed & are unremarkable except as noted in HPI & below Physical Exam Physical Exam: GENERAL: Patient in no acute distress. HEENT: Head is atraumatic, normocephalic. EOM's intact. Facies symmetric. No perioral cyanosis. NECK: No JVD. JVP is at the level of the clavicle sitting upright. Carotid upstrokes are + 2 bilaterally. No bruits are noted. CHEST/LUNGS: Clear to auscultation throughout all lung hunt. No wheezes, rales, or crackles. CVS: S1 and S2 are regular with a grade 2/6 apical systolic murmur. No diastolic murmurs or rubs. PMI is nondisplaced. No lifts, heaves, or thrills. No abdominal aortic or renal bruits. ABDOMINAL EXAM: Bowel sounds are present. No masses, organomegaly, or tenderness. EXTREMITIES: No clubbing or cyanosis. No edema. Intact posterior tibial and radial pulses bilaterally. NEUROLOGIC EXAM: Patient is awake, alert, and oriented. Pleasant and cooperative. Answers questions appropriately. Speech is clear. Normal movement in all 4 extremities. Gait pattern was not assessed. Some thenar and interosseus muscle wasting noted in bilateral hands. Results & Data Results & Data ([facility]) Vital Signs (Past 12 Hours) Vital Signs Temp Pulse Resp BP Pulse Ox 09/10/20 20:40 36.7 C 53 L 15 135/63 95 09/10/20 15:51 36.7 C 19 153/76 H 95 PG Care Time/CCT Total # of Minutes Spent Total Time Spent with Patient: Total time spent is greater than 50% in coordination of care (as documented) at patient's floor/unit and/or counseling patient: Coding Level of Care Code 30936 Subseq Hosp Care Lvl 3 Diagnoses Vertigo R42 HTN (hypertension) I10 Hypertension type: unspecified Type 2 diabetes mellitus E11.9 CAD (coronary artery disease) I25.10 Ischemic cardiomyopathy I25.5 CKD (chronic kidney disease), stage III N18.3 Time Spent (min) 35 (1) HTN (hypertension) Hypertension type: unspecified Qualified Code(s): I10 - Essential (primary) hypertension
[2020-09-11] MEDS: MECLIZINE HCL 25 MG TAB PO PRN (05:56)
[2020-09-11] MEDS: LEVOTHYROXINE SODIUM 75 MCG TABLET PO SCH (05:56)
[2020-09-11] MEDS: lisinopril 20 MG TAB PO SCH (08:53)
[2020-09-11] MEDS: ATORVASTATIN 40 MG TAB PO SCH (08:54)
[2020-09-11] MEDS: ASPIRIN 81 MG ECTAB PO SCH (08:54)
[2020-09-11] MEDS: FUROSEMIDE 20 MG TAB PO SCH (08:54)
[2020-09-11] MEDS: CLOPIDOGREL BISULFATE 75 MG TAB PO SCH (08:54)
[2020-09-11] MEDS: METOPROLOL SUCC 25MG EXT REL TAB PO SCH (08:55)
[2020-09-11] MEDS: MULTIVITAMIN TAB PO SCH (08:55)
[2020-09-11] MEDS: INSULIN ASPART 100 UNITS/ML 3 ML PEN SC SCH ×2 (08:56→12:54)
[2020-09-11] MEDS: INSULIN GLARGINE SOLOSTAR 100 UNITS/ML 3 ML PEN SC SCH (08:57)
[2020-09-11] MEDS: TRIAMCINOLONE ACET NASAL SPRAY 10.8ML BTL NAE SCH (08:59)
--- NOTE | 2020-09-18 15:08 | Discharge Summary ---
Date of Service September 11, 2020 Admission HPI Per Admitting Provider Mr. Davenport is a 75 year old male with a history of Hypertension, Hypercholesterolemia, Mild LVH, Diastolic Dysfunction, Mild to Moderate Mitral Regurgitation, Ischemic Cardiomyopathy (LVEF up to 50%, Jan 2014, Feb 2017, Feb 2019), CAD s/p Anteroapical [place] s/p proximal LAD stents), Type 2 Diabetes Mellitus, Peripheral and Autonomic Neuropathy, and Stage 3 CKD who presents to the ER today complaining of Vertigo, Left Ear Congestion, and Vomiting. His Vertigo is so bad that he cannot walk without risking a fall. These symptoms started yesterday while they were driving to [place] to see a friend, and as they were driving up over [employer] his left ear felt congested, he had decreased hearing in his left ear, and then experienced vertigo. His vertigo and ear congestion seems to be sometimes mild and other times it's more severe -- he describes 5 severe episodes of vertigo since yesterday and symptoms have been more persistent today. He has been unable to walk. He feels like the room is moving. He denies any headache or tinnitus. He denies any focal weakness, tingling, or numbness of his arms or legs. He denies any visual disturbance, blind black spots, loss of visual hunt. He denies any slurred speech. No chest pain, angina, or shortness of breath. His diet and oral intake have been stable. BP's at home have been ranging in the 120 to 130's mmHg at home, although his SBP in the ER was up to 200 mmHg. In the ER, he was noted to have cerumen in the left ear canal. This was removed and his symptoms persisted. Principal Diagnosis vertigo Discharge Exam GENERAL: Patient in no acute distress. HEENT: Head is atraumatic, normocephalic. EOM's intact. Facies symmetric. No perioral cyanosis. NECK: No JVD. JVP is at the level of the clavicle sitting upright. Carotid upstrokes are + 2 bilaterally. No bruits are noted. CHEST/LUNGS: Clear to auscultation throughout all lung hunt. No wheezes, rales, or crackles. CVS: S1 and S2 are regular with a grade 2/6 apical systolic murmur. No diastolic murmurs or rubs. PMI is nondisplaced. No lifts, heaves, or thrills. No abdominal aortic or renal bruits. ABDOMINAL EXAM: Bowel sounds are present. No masses, organomegaly, or tenderness. EXTREMITIES: No clubbing or cyanosis. No edema. Intact posterior tibial and radial pulses bilaterally. NEUROLOGIC EXAM: Patient is awake, alert, and oriented. Pleasant and cooperative. Answers questions appropriately. Speech is clear. Discharge Data Allergies Allergy/AdvReac Type Severity Reaction Status Date / Time No Known Drug Allergies Allergy Verified 09/16/20 12:33 Consultations 09/09/20 12:21 ED Decision to Admit Stat Ordered Studies 09/09/20 10:14 CT angio head w con Stat CT angio neck with con Stat CT head/brain wo con Stat Hospital Course (1) Vertigo: Mr. Davenport is a 75 year old male with a history of Hypertension, Hypercholesterolemia, Mild LVH, Diastolic Dysfunction, Mild to Moderate Mitral Regurgitation, Ischemic Cardiomyopathy (LVEF up to 50%, Jan 2014, Feb 2017, Feb 2019), CAD s/p Anteroapical [place] s/p proximal LAD stents), Type 2 Diabetes Mellitus, Peripheral and Autonomic Neuropathy, and Stage 3 CKD who presents to the ER today complaining of Vertigo, Left Ear Congestion, and Vomiting. His Vertigo is so bad that he cannot walk without risking a fall. These symptoms started yesterday while they were driving to [place] to see a friend, and as they were driving up over [facility] his left ear felt congested, he had decreased hearing in his left ear, and then experienced vertigo. His vertigo and ear congestion seems to be sometimes mild and other times it's more severe -- he describes 5 severe episodes of vertigo since yesterday and symptoms have been more persistent today. He has been unable to walk. He feels like the room is moving. He denies any headache or tinnitus. He denies any focal weakness, tingling, or numbness of his arms or legs. He denies any visual disturbance, blind black spots, loss of visual hunt. He courtney es any slurred speech. No chest pain, angina, or shortness of breath. These symptoms are likely related to eustachian tube dysfunction. It appears like to be Meniere's Disease. No evidence of a CVA on imaging. -- Admit to Med-Surg. --Will continue meclizine, will have patient followup with ENT as an outpatient. Due to patient remaining unsteady will hold discharge. Given that symptoms are to be peripheral, and not central, will hold off MRI. -- Nasacort AQ 2 sprays in each nostril daily. -- Meclizine as needed. -- PT Evaluation and treatment of vertigo: patient is able to ambulate as long as he does not turn to his left.' --Patient is agreeable for discharge, ENT agrees with plan. (2) HTN (hypertension): -- Initial BP in the ER was 202/93 and increased to 208/95. -- BP has subsequently decreased to 163/80. -- Patient states that his BP's at home have been ranging in the 120 to 130's mmHg. -- Continue Lisinopril 20 mg b.i.d.. -- Continue Metoprolol Succinate ER 25 mg b.i.d.. -- Continue Lasix 20 mg daily. (3) Type 2 diabetes mellitus: -- Hold Metformin. -- Monitor daily labs. (4) CAD (coronary artery disease): -- Continue Lisinopril 20 mg b.i.d.. -- Continue Metoprolol Succinate ER 25 mg b.i.d.. -- Continue Lasix 20 mg daily. -- Continue Aspirin 81 mg daily. -- Continue Plavix 75 mg daily. -- Continue Atorvastatin 80 mg daily. (5) Ischemic cardiomyopathy: -- LVEF 50%. -- Well compensated. -- Continue medications as outlined above. (6) CKD (chronic kidney disease), stage III: -- Monitor daily labs. -- Continue medications as outlined above. Total Time Total Time Spent Total Time Spent (In Minutes): 32 Total Time Includes: Examination of the Patient, Discharge Planning and Medication Reconciliation Discharge Plan Discharge Items Patient Disposition: Home - Self-Care Reason For Visit: VERTIGO, UNCONTROLLED HTN Discharge Diagnosis: Vertigo Activity: Resume your previous activity Non-emergency contact: Primary Care Provider Call non-emergency contact if: you have any medication questions Follow-up/Referrals: Flex Figueroa MD [Primary Care Provider] - (Patient has a follow up appt already scheduled.) Diet: Carb Consistent or DM2 Addtl Attending Provider Instructions: You have been hospitalized for an acute medical problem. During your stay at [facility], we have made an effort to correct the problem that brought you to the hospital while keeping you as comfortable as possible. Medications were used to bring your condition under control and your discharge instructions will include directions for any medications you should take after leaving the hospital. Please make sure you see your Primary Care Provider as part of your follow up plan. It appears the cause of your dizziness is Mnires disease. This may take some time to improve. Will recommend you continue to turn to your right only and use meclizine at least 1-2 times daily. Recommend followup with Dr. Clemons within next 7 days for followup and audiogram. Pending Studies at Discharge: No Stand-Alone Forms: My [facility] [employer], Smoking Cessation Medications and DC Order Prescriptions: New meclizine 25 mg Tablet 25 mg PO Q6H PRN (Reason: dizziness) Qty: 30 RF: 0 Continued aspirin [Adult Low Dose Aspirin] 81 mg tablet,delayed release (DR/EC) 81 mg PO DAILY RF: 0 nitroglycerin 0.4 mg tablet, sublingual 0.4 mg SL Q5M PRN (Reason: chest pain) Qty: 25 RF: 5 atorvastatin 80 mg tablet 80 mg PO DAILY Qty: 90 RF: 3 (DME) blood sugar diagnostic Strip See Rx Instructions .ROUTE .MEDSUPPLY Qty: 100 RF: 11 clopidogrel 75 mg tablet 75 mg PO DAILY Qty: 90 RF: 3 furosemide 20 mg tablet 20 mg PO DAILY Qty: 90 RF: 3 levothyroxine 75 mcg capsule 75 mcg PO DAILY Qty: 90 RF: 3 lisinopril 20 mg tablet 20 mg PO BID Qty: 180 RF: 3 metformin 1,000 mg tablet 1,000 mg PO BID Qty: 180 RF: 3 metoprolol succinate 25 mg tablet extended release 24 hr 25 mg PO BID Qty: 180 RF: 3 repaglinide 1 mg tablet See Rx Instructions PO .COMPLEX PRN (Reason: TYPE 2 DIABETES MELLITUS) Qty: 1440 RF: 3 (DME) blood-glucose meter Misc See Rx Instructions .ROUTE .MEDSUPPLY Qty: 1 RF: 0 (DME) lancets [OneTouch Delica Lancets] 33 gauge misc See Dose Instructions .ROUTE .MEDSUPPLY Qty: 100 RF: 0 multivitamin Tablet 1 tab PO DAILY RF: 0 No Action amlodipine 2.5 mg tablet 2.5 mg PO .COMPLEX Qty: 30 RF: 0 Discharge Orders: Discharge Order (Routine); Ordered 09/11/20 Ordered By: Jorge Alberto Renteria Admission Data Admit Date/Time: 09/09/20 16:11 Attending Provider: Jorge Alberto Renteria Admit Provider: Hai Reynoso Primary Care Provider: Flex Figueroa Other Providers: Hai Reynoso Other Interventions: Discharge Summary Assessment (RN) Last Done: 09/11/20 15:45 Coding Level of Care Code 77401 OBS Care - Discharge Diagnoses Vertigo R42 HTN (hypertension) I10 Hypertension type: unspecified Type 2 diabetes mellitus E11.9 CAD (coronary artery disease) I25.10 Ischemic cardiomyopathy I25.5 CKD (chronic kidney disease), stage III N18.3 Time Spent (min) 32
== END 2020-09-11 16:17 | disposition home or self-care (01) ==
LOC: ED 09:34 → 3W 09:34 → SUATTDRO 16:11 → 3W 18:25